=== PATIENT | male | born 1995 | race Caucasian/White ===

== ENCOUNTER 2021-05-30 18:21 | Emergency (ER) | payer OTHER ==
[2021-05-30] MEDS ORDERED: IMODIUM2 MG PO (23:48)
[2021-05-30] MEDS ORDERED: 8 HOUR650 MG PO (23:48)
[2021-05-30] MEDS ORDERED: ZOFRAN4 M1 PO (23:48)
[2021-05-30] MEDS ORDERED: BENTYL10 MG PO (23:48)
== END 2021-05-30 23:53 | disposition home or self-care (01) ==
LOC: FER 18:21
DX: U07.1 COVID-19 (principal); F17.210 Nicotine dependence, cigarettes, uncomplicated
CPT/HCPCS: 99283; U0002